=== PATIENT | female | born 1995 | race Caucasian/White ===

== ENCOUNTER 2018-01-24 12:17 | Emergency (ER) | payer BC ==
[~2018-01-24] VITALS: Ht 165.1 cm; Wt 66.2 kg
[2018-01-24 12:41] LABS: ABSOLUTE LYMPHOCYTES 1.1 thou/uL (0.8-5.3); ABSOLUTE NEUTROPHILS 5.6 thou/uL (1.6-8.1); BASOPHILS 0.3 %; EOSINOPHILS 0.1 %; HEMATOCRIT 40.8 % (37.0-47.0); HEMOGLOBIN 13.7 gm/dL (12.0-15.0); LYMPHOCYTES 14.8 %; MCH 28.2 pg (26.0-34.0); MCHC 33.5 g/dL (28.0-37.0); MCV 84.2 fL (80.0-100.0); MONOCYTES 12.5 %; MPV 7.8 fl. (7.2-11.1); NUCLEATED RBCS 0 /100WBC; PLATELET COUNT* 203 thou/uL (150-400); POLYS 72.3 %; RBC 4.85 mil/uL (4.20-5.00); RDW-CV 13.6 % (10.5-14.5); WBC 7.8 thou/uL (4.0-11.0)
[2018-01-24 12:56] LABS: CALCIUM 8.7 mg/dL (8.5-10.1); CREATININE 0.7 mg/dL (0.6-1.3); POTASSIUM 3.9 mmol/L (3.5-5.1)
[2018-01-24 13:00] LABS: TOTAL BILIRUBIN 0.3 mg/dL (<0.1-1.0); TOTAL PROTEIN 8.8 g/dL (6.4-8.2)
[2018-01-24 13:38] LABS: URINE BILIRUBIN NEGATIVE (Negative); URINE BLOOD TRACE (Negative); URINE CLARITY CLEAR; URINE COLOR YELLOW; URINE GLUCOSE-RANDOM NEGATIVE (Negative); URINE KETONES NEGATIVE (Negative); URINE LEUKOCYTES-REFLEX NEGATIVE (Negative); URINE NITRITE-REFLEX NEGATIVE (Negative); URINE PROTEIN NEGATIVE (Negative); URINE SPECIFIC GRAVITY 1.015 (1.005-1.030); URINE UROBILINOGEN 0.2 E.U./dl (0.2-1.0)
[2018-01-24] MEDS ORDERED: AMOXIL 875 MG875 M1 PO (13:50)
[2018-01-24 14:12] VITALS: BP 112/71
== END 2018-01-24 14:13 | disposition home or self-care (01) ==
LOC: M.ERS 12:17
PROVIDERS: Nurse Practitioner Family
DX: J03.90 Acute tonsillitis, unspecified (principal); R10.9 Unspecified abdominal pain

== ENCOUNTER 2018-01-26 10:59 | Emergency (ER) | payer BC ==
[~2018-01-26] VITALS: Ht 165.1 cm; Wt 66.2 kg
[~2018-01-26 10:59] MED LIST: AMOXIL 875 MG875 M1 PO
[2018-01-26 11:07] VITALS: BP 129/79
[2018-01-26] MEDS ORDERED: TYLENOL EXTRA500 MG PO (11:11)
[2018-01-26] MEDS ORDERED: IBUPROFEN 400400 M2 PO (11:12)
[2018-01-26] MEDS ORDERED: MEDROLDOSEPACK PO (11:19)
== END 2018-01-26 11:34 | disposition home or self-care (01) ==
LOC: M.ERS 10:59
DX: J02.9 Acute pharyngitis, unspecified (principal)

== ENCOUNTER 2018-08-28 15:44 | Emergency (ER) | payer BC ==
[~2018-08-28] VITALS: Ht 162.6 cm; Wt 90.3 kg
[~2018-08-28 15:44] MED LIST changes: +IBUPROFEN 400400 M2 PO; +MEDROLDOSEPACK PO; +TYLENOL EXTRA500 MG PO
[2018-08-28] MEDS ORDERED: PRENATAL PO (15:56)
[2018-08-28 16:29] LABS: ANION GAP 10 mmol/L (7-16); BUN 6 mg/dL (7-18); CALCIUM 8.3 mg/dL (8.5-10.1); CHLORIDE 101 mmol/L (98-107); CO2 24 mmol/L (21-32); CREATININE 0.6 mg/dL (0.6-1.3); GLUCOSE 140 mg/dL (70-99); SODIUM 135 mmol/L (136-145)
[2018-08-28 16:36] LABS: ALBUMIN 2.4 g/dL (3.4-5.0); ALKALINE PHOSPHATASE 101 U/L (46-116); SGOT 33 U/L (15-37); SGPT 17 U/L (30-65); TOTAL BILIRUBIN 0.2 mg/dL (<0.1-1.0); TOTAL PROTEIN 7.2 g/dL (6.4-8.2); TROPONIN-I LEVEL <0.06 ng/mL (<0.06)
[2018-08-28 16:50] LABS: ABSOLUTE BASOPHILS 0.1 thou/uL (0.0-0.2); ABSOLUTE EOSINOPHILS 0.1 thou/uL (0.0-0.7); ABSOLUTE LYMPHOCYTES 2.2 thou/uL (0.8-5.3); ABSOLUTE MONOCYTES 0.9 thou/uL (0.0-1.2); ABSOLUTE NEUTROPHILS 7.3 thou/uL (1.6-8.1); BASOPHILS 0.5 %; EOSINOPHILS 0.7 %; HEMATOCRIT 32.9 % (37.0-47.0); HEMOGLOBIN 11.1 gm/dL (12.0-15.0); LYMPHOCYTES 20.8 %; MCH 28.7 pg (26.0-34.0); MCHC 33.9 g/dL (28.0-37.0); MCV 84.5 fL (80.0-100.0); MONOCYTES 8.3 %; MPV 7.9 fl. (7.2-11.1); NUCLEATED RBCS 0 /100WBC; PLATELET COUNT* 217 thou/uL (150-400); POLYS 69.7 %; RBC 3.89 mil/uL (4.20-5.00); WBC 10.4 thou/uL (4.0-11.0)
[2018-08-28 16:51] LABS: WBC ND thou/uL (4.0-11.0)
[2018-08-28 17:36] LABS: URINE BILIRUBIN NEGATIVE (Negative); URINE BLOOD NEGATIVE (Negative); URINE CLARITY CLEAR; URINE COLOR YELLOW; URINE GLUCOSE-RANDOM NEGATIVE (Negative); URINE KETONES TRACE (Negative); URINE LEUKOCYTES-REFLEX NEGATIVE (Negative); URINE NITRITE-REFLEX NEGATIVE (Negative); URINE PROTEIN NEGATIVE (Negative); URINE SPECIFIC GRAVITY <= 1.005 (1.005-1.030); URINE UROBILINOGEN 0.2 E.U./dl (0.2-1.0)
[2018-08-28 18:11] VITALS: BP 139/80
--- NOTE | 2018-08-29 10:22 | EKG ---
[place] [address] ELECTROCARDIOGRAM REPORT Name: SWAPNA ARRIAGA Room: [facility]#: [id number] Admission: 08/28/18 Attend Phys: Discharge: 08/28/18 Date of : [birth year] Report #: [id number] THIS REPORT FOR: //name// [facility] ED Test Date: 2018-08-28 Test Time: 15:50:00 Pat Name: SWAPNA ARRAIGA Department: Room: Gender: F Voice Teacher: LY : 1995 Requested By: Chet Kirk Order Number: [id number] MD: Naeem Prabhakar Measurements Intervals [place] Rate: 110 P: 24 [place]: 128 QRS: 42 QRSD: 75 T: 7 QT: 340 QTc: 461 Interpretive Statements Sinus tachycardia No previous ECG available for comparison Electronically Signed On 08-29-2018 10:21:59 SURGICAL AIDE by Naeem Prabhakar [email or web address] <ELECTRONICALLY SIGNED> By: Naeem Prabhakar MD, [facility] 08/29/18 1021 1550 1550 Naeem Prabhakar MD, FACC /EPI
== END 2018-08-28 18:11 | disposition home or self-care (01) ==
LOC: M.ERS 15:44
PROVIDERS: Family Medicine; Nurse Practitioner Family
DX: O26.893 Other specified pregnancy related conditions, third trimester (principal); E86.0 Dehydration; R00.2 Palpitations; R73.9 Hyperglycemia, unspecified; R03.0 Elevated blood-pressure reading, without diagnosis of hypertension; Z3A.31 31 weeks gestation of pregnancy